=== PATIENT | female | born 1970 | race Two or more races ===

== ENCOUNTER → 2024-10-27 | Day surgery (SDC) | payer MEDICAID ==
[2024-10-21 12:04] LABS: Hematocrit 39.8 % (36.0-46.0); Hemoglobin 13.6 g/dL (12.2-16.2); Mean Corpuscular Hemoglobin 30.4 pg (28.0-32.0); Mean Corpuscular Volume 89.3 fL (80.0-100.0); Nucleated Red Blood Cells % 0.0 %
[2024-10-21 12:15] LABS: INR 0.92 (0.9-1.15); Partial Thromboplastin Time 25.7 SEC (24.5-34.5); Prothrombin Time 9.8 sec (9.3-11.8)
[2024-10-21 12:48] LABS: Urine Protein, UAD Negative (Negative)
[2024-10-21 12:53] LABS: Alanine Aminotransferase 18 U/L (7-40); Albumin 4.8 g/dL (3.2-4.8); Alkaline Phosphatase 95 U/L (46-116); Anion Gap 7 (5-15); BUN/Creatinine Ratio 19.7 (10.0-20.0); Bilirubin, Total 0.5 mg/dL (0.2-1.0); Blood Urea Nitrogen 15 mg/dL (9-23); Calcium 9.7 mg/dL (8.7-10.4); Carbon Dioxide 28 mmol/L (20-31); Chloride 106 mmol/L (98-107); Glucose 91 mg/dL (74-106); Potassium 4.4 mmol/L (3.5-5.1); Sodium 141 mmol/L (136-145); Total Protein 7.4 g/dL (5.7-8.2)
[~2024-10-27] VITALS: Ht 157.5 cm; Wt 64.4 kg
[~2024-10-27] MED LIST: BACITRACIN TOP OINT 1 UD PKG TOP ONE; HYDROmorphone HCL 2 MG/ML VL/or syr IV PRN; KETOROLAC TROMETH 30 MG/ML 1ML VIAL ONE; LIDOCAINE 2% (LOCAL ANESTH.) PF 5ml SDV ONE; METOCLOPRAMIDE HCL 5MG/ml INJ 2ml VIAL IV ONE; METOCLOPRAMIDE HCL 5MG/ml INJ 2ml VIAL ONE; MIDAZOLAM HCL 2MG/2ML 2ml VIAL (1mg/ml) ONE; ONDANSETRON HCL 4 MG/2 ML VIAL IV ONE; ONDANSETRON HCL 4 MG/2 ML VIAL ONE; PROPOFOL 10 MG/ML 20 ML IV ONE; ceFAZolin 2 GM/D5W50ml 50 ML IV ONE; fentaNYL CITRATE 100 MCG/2 ML VL ONE
[2024-10-27] MEDS: LIDOCAINE 1% HCL (LOCAL ANESTH.) INJ 20ML MDV ONE (13:26)
[2024-10-27 13:34] VITALS: PULSE 58; RESP 12; TEMP 96.6; O2SAT 99
[2024-10-27 13:44] VITALS: PULSE 64; RESP 12; O2SAT 95
--- NOTE | 2024-10-27 14:13 | DVHOP2 ---
Operative Report - 2 Report Details Date: 10/27/24 Preop Diagnosis: 1. Right third toe exostosis 2. Right hallux ingrown nail 3. Right foot pain Postop Diagnosis: Same as preop Surgeon: Benjie Stephens MD Anesthesiologist: See anesthesia Anesthesia: Mac Consent: The patient was informed of the risks and benefits of the procedure. These include but are not limited to complications of anesthesia, postoperative infection, incomplete relief of symptoms, recurrence of symptoms, damage to blood vessels, nerves and tendons, deep venous thrombosis, pulmonary embolism and possible need for repeat surgery in the future. Complications: None Estimated Blood Loss: Minimal Fluids: See anesthesia Findings: Consistent with diagnosis Indications for Surgery: Worsening right foot pain Name of Procedure Performed 1. Right third toe exostectomy (56327) 2. Right third hammer toe repair (15379) 3. Right hallux avulsion (41575) Procedure Details Procedure Details: PRE-PROCEDURE INFORMATION: In the pre-op holding area, the extremity to be operated on was clearly marked and the patient verified correct laterality of the marking. The patient was transferred to the OR table and placed in a supine position. A timeout was performed in which identification of the correct patient, procedure, location, and materials was done. The _ foot and leg were prepped and draped in normal sterile fashion. The foot and leg were exsanguinated and the _ tourniquet was inflated to 250 mmHg. DESCRIPTION OF PROCEDURE: Attention was directed to the right 3rd toe digit where the exostosis was located. A stab incision was made just medial to the 5th digit. The incision was deepened through blunt and sharp dissection. Care was taken to avoid any neurovascular and tendinous structures. Using the Arthrex MIS bur, the exostosis was then removed in its entirety. Using the MIS denisa, the right 3rd toe osteotomy was performed to correct the hammertoe. After the bur was used the exostosis was no longer felt clinically. The incision was closed with a 4-0 nylon. Attention was directed to the right hallux where an ingrown nail was located. Using a hemostat, the nail was removed in its entirety. No phenol was applied as we will allow the nail to grow out. All surgical wounds were irrigated copiously with saline and closed in layers with the aforementioned suture material. A dry sterile dressing was placed on the surgical extremity. The patient was placed in a postop shoe POSTOPERATIVE INFORMATION: The patient tolerated the above noted procedure and anesthesia well and was transferred to the PACU with vital signs stable, and vascular status intact with capillary refill intact to all digits. Postoperative instructions reviewed in detail with the patient with written instructions provided. Patient will return to clinic in approximately 10-14 days for first postoperative visit. Patient has the number of the clinic and was instructed to call prior to that time should any problems, questions, or concerns arise. Condition Good Disposition Home BENJIE STEPHENS DPM Oct 27, 2024 14:13
[2024-10-27 16:00] VITALS: BP 105/59; PULSE 68; RESP 12; O2SAT 97
== END | disposition home or self-care (01) ==
LOC: SUR 10:39
PROVIDERS: ATTEND Podiatrist
DX: L60.0 Ingrowing nail (principal); M20.41 Other hammer toe(s) (acquired), right foot; D16.31 Benign neoplasm of short bones of right lower limb; E11.9 Type 2 diabetes mellitus without complications; Z79.899 Other long term (current) drug therapy; Z90.710 Acquired absence of both cervix and uterus; Z98.890 Other specified postprocedural states
CPT/HCPCS: 11730; 28285; 36415; 80053; 81003; 85025; 85610; 85730; J0690; J1885; J2003; J2250; J2405; J2704; J2765; J3010